=== PATIENT | female | born 1965 | race Caucasian/White ===

== ENCOUNTER 2021-11-30 10:37 | Emergency (ER) | payer OTHER ==
[~2021-11-30] VITALS: Ht 154.9 cm; Wt 77.3 kg
[~2021-11-30 10:37] MED LIST: IRON; PENT100C9 PO
[2021-11-30 10:54] VITALS: BP 150/92
--- NOTE | 2021-11-30 11:50 | NUR ---
[facility] AT [facility]
== END 2021-11-30 13:01 | disposition home or self-care (01) ==
LOC: ER 10:38
DX: M79.604 Pain in right leg (principal); Z88.5 Allergy status to narcotic agent
CPT/HCPCS: 93971; 99284

== ENCOUNTER 2024-01-23 14:51 | Emergency (ER) | payer OTHER ==
[~2024-01-23] VITALS: Ht 162.6 cm; Wt 84.1 kg
[2024-01-23 14:56] VITALS: TEMP 97
[2024-01-23 17:37] LABS: BILIRUBIN,URINE NEGATIVE (Neg); CLARITY,URINE CLEAR (Clear); COLOR,URINE YELLOW (Yellow); GLUCOSE, URINE NEGATIVE (Neg); KETONES,URINE NEGATIVE (Neg); LEUKOCYTE ESTERASE ,URINE NEGATIVE (Neg); NITRITES, URINE NEGATIVE (Neg); OCCULT BLOOD,URINE SMALL (Neg); PH,URINE 6.5 (4.8-8.0); PROTEIN,URINE NEGATIVE (Neg); UROBILINOGEN,URINE 0.2 E.U/dL (0.2-1.0)
[2024-01-23 17:38] LABS: UA COLLECTION TYPE CLN CATCH MIDSTREAM
[2024-01-23 17:43] LABS: SQUAMOUS EPITHELIAL CELL,UR FEW /LPF (FEW)
[2024-01-23 17:44] LABS: WBC,URINE 0-4 /HPF (0-4)
[2024-01-23 17:47] LABS: BACTERIA,URINE NONE SEEN /HPF (Neg); RBC,URINE 0-2 /HPF (0-2)
[2024-01-23] MEDS ORDERED: ACET-1025 PO (18:15)
[2024-01-23 18:30] VITALS: BP 140/88; PULSE 90; RESP 18; O2SAT 94
== END 2024-01-23 18:35 | disposition home or self-care (01) ==
LOC: ER 14:52
DX: M54.50 Low back pain, unspecified (principal); M54.2 Cervicalgia; M54.6 Pain in thoracic spine; D64.9 Anemia, unspecified; Z88.8 Allergy status to other drugs, medicaments and biological substances; Z79.899 Other long term (current) drug therapy
CPT/HCPCS: 72040; 72125; 72128; 72131; 81001; 99284

== ENCOUNTER 2025-04-16 11:21 | Emergency (ER) | payer OTHER ==
[~2025-04-16] VITALS: Ht 157.5 cm; Wt 78.1 kg
[2025-04-16 11:29] VITALS: BP 121/73; PULSE 90; RESP 16; TEMP 96.9; O2SAT 96
--- NOTE | 2025-04-16 11:34 | Physician Documentation ---
History of Present Illness ~ Chief Complaint: Mechanical Fall Stated Complaint: FALL BACK AND ARM PAIN Time Seen by MD: 11:51 Primary Medical Doctor: LISA COPELAND HPI Is a very pleasant 59-year-old female that presents to the emergency department for evaluation of back pain after falling 2 days ago. Patient denies striking her head. Patient reports right shoulder pain and bilateral lumbosacral pain and pain with palpation to her sacrum. Patient denies fever chills nausea vomiting diarrhea incontinence of bowel or bladder numbness to her perineum numbness or tingling in her lower extremities or upper extremities at this time. Patient reports that she took Advil this morning around 8:00 a.m.. Patient denies any other symptoms and denies taking any other medications at this time. Tetanus within 5 Years?: Yes Medication Reconciliation Allergies: Coded Allergies: codeine (Verified Adverse Reaction, Severe, EMESIS, 04/16/25) Scheduled Pentosan Polysulfate Sodium ([place]), 1 CAP PO HS, (Reported) Pentosan Polysulfate Sodium ([place]), 1 CAP PO QAM, (Reported) Miscellaneous Medications [Iron], Unknown Dose, (Reported) Past Medical History Past Medical History: Anemia Past Surgical History: no surgical history Alcohol Use: None Drug Use: none Lives with: Family Lives In: Home Occupation: employed Review of Systems ROS As stated above in the HPI, otherwise all systems are reviewed and negative. Physical Exam Vital Signs: Temperature: 96.9, Source: Temporal, Heart Rate: 90, Respiratory Rate: 16, BP: 121/73, Pulse Oximetry: 96, Weight: 78.100 Oxygen Flow Rate: 0 General Appearance VITALS: Reviewed and as above. GENERAL: Alert, no apparent distress. HEENT: Normocephalic, atraumatic, PERRL, EOMI, dry mucosa, no erythema RESPIRATORY: Lungs clear, normal breath sounds, no respiratory distress. CHEST: No accessory muscle use, no retractions CV: Regular rate, rhythm, no edema, no murmur, No: JVD GI: Soft, non-tender, bowels sounds present, no rebound, guarding, or rigidity BACK: No CVA tenderness, or swelling MUSCULOSKELETAL No deformities, no edema, significant tenderness with palpation to the right shoulder even with light touch, reduced range of motion to the right shoulder, patient reports tenderness about palpation to the lumbosacral region bilaterally, patient reports tenderness with palpation to the sacrum during examination. 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 Shoulder, Complete (Min 2 Vws) (04/16/25 11:39) Sacrum & Coccyx (04/16/25 11:39) Lumbar Spine Limited (04/16/25 11:39) Completed Orders - MARIBELL FERNÁNDEZ W[employer] R[employer] OPERATOR Shoulder, Complete (Min 2 Vws) (04/16/25 11:39) Sacrum & Coccyx (04/16/25 11:39) Lumbar Spine Limited (04/16/25 11:39) Vital Signs 04/16/25 11:29 Temp 96.9 Pulse 90 Resp 16 B/P (MAP) 121/73 Pulse Ox 96 O2 Flow Rate 0 Medical Decision Making Additional information obtaine: other Findings Medical Decision Making - Moderate Complexity Number of Problems Addressed: Multiple (acute back pain, shoulder pain, degene rative spine changes) Amount and Complexity of Data Reviewed: X-rays of bilateral shoulders, lumbosacral spine, and sacrum reviewed and interpreted. All imaging negative for acute fracture or dislocation but demonstrates degenerative changes. Risk of Complications: Moderate risk given mechanism of fall in 59-year-old female, though mitigated by absence of red flag findings and negative imaging. Clinical Assessment and Reasoning: This 59-year-old female presented with acute low back pain and right shoulder pain following a fall two days ago. History and physical examination were performed to exclude serious underlying pathology. The patient denies red flag symptoms including fever, bowel or bladder incontinence, saddle anesthesia, progressive neurologic deficits, or constitutional symptoms such as unexplained weight loss. Neurologic examination revealed no motor weakness, sensory deficits, or abnormal reflexes. The absence of these red flag findings significantly reduces the probability of serious spinal pathology such as cauda equina syndrome, epidural abscess, malignancy, or vertebral fracture requiring urgent intervention. Imaging was obtained given the mechanism of trauma in a 59-year-old patient. X- rays of the shoulders, lumbosacral spine, and sacrum were negative for acute fractures or dislocations, which effectively rules out traumatic bony injury. Degenerative changes noted on imaging are common in asymptomatic individuals and do not necessarily correlate with pain severity. The clinical presentation is most consistent with acute nonspecific low back pain following mechanical trauma. The patient was educated regarding the generally favorable prognosis of acute low back pain, with most patients experiencing substantial improvement within the first month regardless of treatment. The patient was advised to remain active as tolerated and avoid prolonged bed rest, as activity modification promotes recovery. Treatment Plan: The patient may continue acetaminophen and ibuprofen for pain management. The [employer] recommends nonsteroidal anti-inflammatory drugs as first-line pharmacologic therapy for acute low back pain, with moderate- quality evidence supporting small improvements in pain intensity and function. While recent evidence suggests acetaminophen alone may not be superior to placebo for nonspecific low back pain, combination therapy with NSAIDs and a cetaminophen has demonstrated superior analgesia compared to either agent alone in some acute pain settings, with potential dose-sparing effects. The patient should use the lowest effective dose for the shortest duration necessary, being mindful of gastrointestinal and renal risks associated with NSAIDs. Nonpharmacologic interventions such as superficial heat application may provide additional benefit for pain relief and functional improvement. Disposition: The patient is safe for discharge home with instructions to follow up with her primary care provider for management of degenerative spine changes and reassessment if symptoms do not improve as expected. The patient was instructed to return to the emergency department if she develops any red flag symptoms including fever, bowel or bladder dysfunction, progressive weakness, numbness in the perineal region, or severe unrelenting pain. Given the absence of serious pathology, negative imaging for acute injury, and appropriate outpatient follow-up plan, emergency department discharge is medically appropriate. Differential Dx:Considerations: Include: Closed head injury, Cardiac injury, Fracture(s), Intraabdominal injury, Pneumothorax, Cerebral contusion, Pulmonary contusion, Spine injury, Tracheal injury, Urological injury, Vascular injury, Abrasion(s), Contusion(s), Foreign body(s), Hematoma(s), Laceration(s), Encephalopathy, Other Departure Disposition: 01 HOME / SELF CARE / HOMELESS Impression: Primary Impression: Musculoskeletal arm pain Additional Impressions: Fall Lumbosacral strain Condition: Stable Discharge Instructions: Fall Prevention in the Home, Adult, [facility] Additional Instructions: Your Diagnosis You came to the emergency department because of back pain and shoulder pain after a fall two days ago. X-rays of your shoulders, lower back, and tailbone area showed no broken bones or dislocations. The X-rays did show some [id number]-[id number] changes in your spine, which are common as we age. These changes should be discussed with your primary care doctor at your follow-up visit. What This Means Most people with back pain like yours get better on their own within a few weeks. Your body is already healing, and the pain should gradually improve. The good news is that your examination and X-rays did not show any serious problems that need urgent treatment. What You Should Do at Home Stay Active: The most important thing you can do is to stay as active as possible. Avoid bed rest. Continue your normal daily activities as much as you can, even if you have some pain. Moving around actually helps you heal faster. Start slowly and gradually increase your activity level as you feel better. Pain Relief: You may continue taking ibuprofen (Advil, Motrin) or acetaminophen (Tylenol) for pain as needed. Take the lowest dose that helps your pain for the shortest time needed For ibuprofen: Take with food to protect your stomach. Do not take more than directed on the bottle. For acetaminophen: Do not take more than 3,000 mg (3 grams) in 24 hours Heat therapy: Applying a heating pad or warm pack to your back for 15-20 minutes at a time may help relieve pain Things to Avoid: Do not stay in bed all daythis can actually make your recovery slower Avoid heavy lifting until your pain improves Be careful with activities that caused your fall Follow-Up Care You need to see your primary care doctor to: Check on your recovery from the fall Discuss the [id number] changes seen on your X-rays Make sure your pain is improving as expected Call to schedule this appointment within the next 1-2 weeks. When to Return to the Emergency Department Come back to the emergency department right away or call 911 if you develop any of these warning signs: Fever (temperature over 100.4F) Loss of bowel or bladder control (cannot control when you urinate or have a bowel movement) Numbness in your genital or rectal area (the area you sit on) New weakness in your legs that is getting worse Severe pain that keeps getting worse despite taking pain medication Numbness or tingling in both legs Unexplained weight loss Also return if: Your pain is not improving after 4-6 weeks You develop new symptoms that concern you Your pain becomes so severe you cannot function What to Expect Most people with back pain like yours feel significantly better within the first month. Some discomfort may continue for a few weeks, but this is normal. If your pain is not improving after several weeks of home care, your primary care doctor may recommend physical therapy or other treatments. Important Reminders This type of back pain usually gets better with time and staying active Taking care of yourself at home is the best treatment for most people Follow up with your primary care doctor as instructed Return to the emergency department if you develop any of the warning signs listed above Referrals: NO PRIMARY CARE PROVIDER (PCP) Education Educated: Patient Educated regarding: diagnosis, treatment, need for follow up Signature Scribe Signature: A Attestation: Scribed for Maribell Fernández by TEVIN Patrick . 04/16/25 13:05 MARIBELL FERNÁNDEZ Apr 16, 2025 11:34
--- NOTE | 2025-04-16 12:12 | RADIOLOGY REPORT ---
EXAM: DI SHOULDER, COMPLETE (MIN 2 VWS) HISTORY: Pain after fall 2 days ago. COMPARISON: None TECHNIQUE: 2 views of the right shoulder were performed. FINDINGS: No acute fracture or dislocation are identified about the right shoulder. No significant degenerative changes or loss of subacromial space. There are small calcifications of the rotator cuff near the greater tuberosity insertion. IMPRESSION: 1. No fracture of the right shoulder. 2. Calcific rotator cuff tendinopathy. This may be better characterized with noncontrast MRI of the right shoulder on an outpatient nonemergent basis.
--- NOTE | 2025-04-16 12:16 | RADIOLOGY REPORT ---
EXAM: DI LUMBAR SPINE LIMITED HISTORY: Pain after fall 2 days ago. COMPARISON: None TECHNIQUE: AP and lateral views of the lumbar spine and spot lateral of the lumbosacral junction were performed. FINDINGS: No fracture or listhesis of the lumbar spine. There is mild lumbar degenerative disc disease and facet arthropathy. There is grade 1 anterolisthesis L4 on L5 measuring 5.5 mm AP. IMPRESSION: Mild degenerative changes of the lumbar spine without evidence of fracture.
--- NOTE | 2025-04-16 12:17 | RADIOLOGY REPORT ---
CLINICAL INDICATION: Pain after fall 2 days ago. TECHNIQUE: 3 views of the sacrum and coccyx were performed. DI SACRUM COCCYX COMPARISON: None FINDINGS/IMPRESSION: 1. No acute displaced fractures are identified about the sacrum or coccyx. 2. Mild bilateral sacroiliac degenerative changes. 3. Mild degenerative disc disease and facet arthropathy of the lower lumbar spine.
== END 2025-04-16 13:22 | disposition home or self-care (01) ==
LOC: ER 11:22
DX: S39.012A Strain of muscle, fascia and tendon of lower back, initial encounter (principal); M79.603 Pain in arm, unspecified; D64.9 Anemia, unspecified; Z88.5 Allergy status to narcotic agent; Z79.899 Other long term (current) drug therapy; W18.39XA Other fall on same level, initial encounter; Y93.89 Activity, other specified; Y92.89 Other specified places as the place of occurrence of the external cause; Y99.8 Other external cause status
CPT/HCPCS: 72100; 72220; 73030; 99284; A4565

== ENCOUNTER 2025-04-21 08:41 | Outpatient (CLI) | payer OTHER ==
--- NOTE | 2025-04-21 10:46 | RADIOLOGY REPORT ---
EXAM: MR MRI C SPINE HISTORY: SPINAL STENOSIS, CERVICAL REGION. COMPARISON: Cervical spine radiographs 01/23/2024. TECHNIQUE: MRI was performed utilizing multiple appropriate imaging planes and pulse sequences. FINDINGS: SPINAL CORD: The spinal cord demonstrates normal signal and morphology throughout its course. No cord edema is present. CRANIOCERVICAL JUNCTION: The atlanto-dens interval is within normal limits. There is no evidence for significant cerebellar tonsillar ectopia. ALIGNMENT: Degenerative-related mild grade 1 anterolisthesis of C3 on C4 and mild retrolisthesis of C5 on C6. BONES: Vertebral body heights are preserved. No acute compression deformities are present. Posterior elements are intact. 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 No discrete marrow infiltrative lesion is seen. Degenerative-related [id number]-ga-[id number] fatty/Modic type II endplate changes at the C4-C5 level. T4 vertebral body with an incidentally noted benign hemangioma measuring approximately 1.5 cm. DISCS: Multilevel disc space narrowing that is notably moderate at the C4-C5 level and [id number]-[id number] at the C5-C6 level. PARASPINAL SOFT TISSUES: Unremarkable. [id number]-nt-[id number] assessment for degenerative changes, spinal canal stenosis, neuroforaminal narrowing as follows: C2-C3: No disc herniation, spinal canal stenosis, or neuroforaminal narrowing. C3-C4: Osseous fusion of the bilateral facets. No disc herniation, spinal canal stenosis, or neuroforaminal narrowing. C4-C5: Broad-based small posterior disc bulge/osteophyte complex, pyjz-ch-sktcjqog bilateral facet arthropathy, and bilateral uncovertebral joint hypertrophy. Mild spinal canal stenosis. Severe bilateral neuroforaminal narrowing. C5-C6: Broad-based small posterior disc bulge/osteophyte complex, [id number] bilateral facet arthropathy, and bilateral uncovertebral joint hypertrophy. Mild spinal canal stenosis. Severe bilateral neuroforaminal narrowing. C6-C7: No disc herniation, spinal canal stenosis, or neuroforaminal narrowing. C7-T1: Broad-based small posterior disc bulge/osteophyte complex and mild bilateral facet arthropathy. No spinal canal stenosis or neuroforaminal narrowing. Partially imaged portions of the skull base/posterior fossa: Unremarkable. IMPRESSION: Multilevel degenerative changes of the cervical spine most notable at the C4-C5 and C5-C6 levels as described in the findings, which results in mild spinal canal stenoses and severe bilateral neuroforaminal narrowing at these levels.
== END 2025-04-21 23:59 | disposition home or self-care (01) ==
LOC: MRI02 08:41
PROVIDERS: ATTEND Family Medicine
DX: M50.13 Cervical disc disorder with radiculopathy, cervicothoracic region (principal); M47.22 Other spondylosis with radiculopathy, cervical region; M25.78 Osteophyte, vertebrae; M48.03 Spinal stenosis, cervicothoracic region; M47.23 Other spondylosis with radiculopathy, cervicothoracic region
CPT/HCPCS: 72141